=== PATIENT | male | born 1995 | race Caucasian/White ===

== ENCOUNTER 2025-01-19 20:16 | Emergency (ER) | payer SELFPAY ==
--- NOTE | ~2025-01-19 | XR_ITS ---
CLINICAL HISTORY: SOB 1 view chest x-ray Comparison: None provided Findings: The lungs are clear. Heart size is normal. No acute fracture. IMPRESSION: 1. No acute findings. This document has been electronically signed by: Collins Felipe MD on 01/19/2025 21:59:42
--- NOTE | 2025-01-19 20:19 | ECG_ITS ---
Test Reason : SOB Blood Pressure : */* mmHG Vent. Rate : 90 BPM Atrial Rate : 90 BPM P-R Int : 138 ms QRS Dur : 94 ms QT Int : 364 ms P-R-T Axes : 48 86 46 degrees QTcB Int : 445 ms Normal sinus rhythm Normal ECG No previous ECGs available Referred By: Pat Tinoco Electronically Signed By: Moses Martin
[2025-01-19 20:22] VITALS: PULSE 114; RESP 30; O2SAT 100; BMI 25.1
[2025-01-19] MEDS: diazePAM 10 MG/2 ML CARTRIDGE 5 MG IVPUSH (20:28)
--- NOTE | 2025-01-19 20:42 | ED_ITS ---
HPI - General Adult General Chief complaint: Anxiety Stated complaint: sob Time Seen by Provider: 01/19/25 20:33 Source: patient Mode of arrival: ambulatory Limitations: no limitations History of Present Illness ED Provider: Axel REDDY HPI narrative: The patient is a 29-year-old male presenting to the ED for evaluation of severe shortness of breath with hyperventilation. Patient's significant other reports patient was sitting in the car when he began experiencing sudden onset shortness of breath and severe anxiety. The patient admits to smoking marijuana earlier today, denies any other substance use. The patient denies any history of respiratory pathology. Upon initial evaluation the patient is highly anxious, tearful, stating 6 months ago and urgent care center advised him he had a ?stain on his lungs. The patient currently reports associated chest pain with deep respiration, denies associated nausea, vomiting, abdominal pain, back pain, denies recent fever/chills, sick contacts, or trauma. Related Data Allergies Allergy/AdvReac Type Severity Reaction Status Date / Time No Known Allergies (No Known Allergy Verified 01/19/25 20:25 Allergies*) Review of Systems 2 Review of Systems: Yes all other systems are reviewed and are negative PMFSH Social History Social History Unable to assess alcohol history related to: Unknown Smoked in Last 30 Days: Yes Use of substances other than those prescribed or required for medical reasons: Yes Substance Use Type: Marijuana Substance Use Frequency: Occasionally Last Used Substance: Hours (ago) Any prior treatment program specific to substance use: No Advance Directives: No Advance Directives Information Provided: No Do you have a plan to hurt others: No Plan Physical Exam ED Vital Signs: Vital Signs - 24 hr 01/19/25 20:22 01/19/25 21:39 Temperature 97.9 F Pulse Rate 114 H 71 Respiratory Rate 30 H 16 Blood Pressure 103/56 L Pulse Oximetry 100 98 Oxygen Delivery Method Room Air Room Air BMI result Body Mass Index 25.1 CONSTITUTIONAL: The patient appears highly anxious, tearful, otherwise non- toxic, well nourished and in no acute distress. Vital signs as documented, no hypoxia. HEAD: Atraumatic, normocephalic. EYES: EOMs grossly intact, pupils equal, conjunctiva clear, no exudate. ENT: Nares patent, no discharge. Airway patent, no audible stridor, visible mucosa is pink and moist without noted lesions. NECK: Trachea is midline, no obvious masses or gross abnormalities. CHEST: Symmetric movement, normal appearance. LUNGS: LS present and CTAB, no w/r/r. Non-labored work of breathing. CARDIAC: Regular Rhythm, S1/S2 appreciated, no murmurs, rubs or gallops. ABDOMEN: Abdomen soft and non-tender x4 quadrants, no palpable masses or organomegaly. : Deferred. EXTREMITIES: Normal tone, moves all extremities spontaneously without reported pain. No obvious acute injury or deformity noted. NEURO: Alert and oriented x3, CN II-XII appear grossly intact. Diffuse tremors noted, cerebellar functioning otherwise grossly intact. No obvious sensory or motor deficits. Speech clear and appropriate. PSYCH: Highly anxious affect, otherwise with appropriate eye contact, fluid speech, with appropriate response to questioning. No reported suicidality or homicidality. Patient does not appear to be responding to internal stimuli. SKIN: Warm, dry, color appropriate, normal turgor. No rashes noted. Medications Administered Discontinued Medications Generic Name Dose Route Start Last Admin Trade Name Tacosq PRN Reason Stop Dose Admin Diazepam 5 mg 01/19/25 20:19 01/19/25 20:28 Diazepam 10 Mg/2 Ml Cartridge IVPUSH 01/19/25 20:20 5 mg STAT STA Administration Medical Decision Making Medical Decision Making MDM Narrative: 8:46 PM 01/19/2025 (Nelson REDDY): The patient is a 29-year-old male presenting to the ED for evaluation of sudden onset shortness of breath with severe anxiety. The patient appears to be suffering from hyperventilation syndrome, patient was able to be calmed with excessive coaching, we will also give Valium to assist with anxiolysis. The patient's exam is otherwise markedly reassuring, no hypoxia. No adventitious lung sounds. The patient's EKG is nonischemic. We will obtain basic laboratory workup, troponin, and chest x-ray. 9:08 PM 01/19/2025 (Nelson REDDY): Patient's laboratory evaluation is beginning to result, no leukocytosis, significant anemia, electrolyte abnormality, or LANIE. The patient's LFTs are normal. Troponin is negative. Viral swab is pending. Patient is refusing to leave his girlfriend in the exam room to go for a two- view chest x-ray. Chest x-ray changed to one view portable. The patient's viral swab is negative. Patient's heart rate has improved, patient appears less anxious following intervention, tremors have resolved.. We will continue to monitor while awaiting chest x-ray results. 10:46 PM 01/19/2025 (Nelson REDDY): Patient's x-ray results have resulted, no acute findings. Patient's heart rate has improved with calming, patient is currently PERC negative, no indication for advanced imaging. Patient will be reassessed with expectation of discharge. Admission/Observation Consideration of admission/observation: Escalation of care including admission/observation considered Lab Data MDM Lab Attestation statement: I reviewed the patient's lab results. 01/19/25 20:38 01/19/25 20:38 Labs: Lab Results 01/19/25 01/19/25 Range/Units 20:38 20:58 WBC 4.7 L (4.8-10.8) X10*3/uL RBC 4.34 L (4.60-5.80) X10*6/uL Hgb 13.0 L (14.0-18.0) g/dl Hct 37.2 L (42.0-52.0) % MCV 85.7 (80.0-98.0) fL MCH 30.0 (27.0-33.0) pg MCHC 34.9 (31.0-36.0) g/dl RDW 11.6 (11.0-16.0) % Plt Count 183 (160-400) X10*3/uL MPV 9.9 (9.4-12.4) fL Immature Gran % (Auto) 0.2 (0.0-0.4) % Neut % (Auto) 45.3 (45-73) % Lymph % (Auto) 41.8 H (20-40) % Sharp % (Auto) 8.9 (2-11) % Eos % (Auto) 3.2 (0-4) % Baso % (Auto) 0.6 (0-2) % Lymph # (Auto) 2.0 (1.2-4.9) X10*3/uL Sharp # (Auto) 0.4 (0.1-1.2) X10*3/uL Eos # (Auto) 0.2 (0.0-0.4) X10*3/uL Baso # (Auto) 0.0 (0.0-0.2) X10*3/uL Abs Immat Gran (auto) 0.01 (0.00-0.03) X10*3/uL Absolute Neuts (auto) 2.1 (2.0-8.3) x10*3/uL Absolute Nucleated RBC 0.000 (0.0-0.012) X10*3/uL Nucleated RBC % (auto) 0.0 (0.0-0.2) /100WBC Sodium 142 (135-145) mmol/L Potassium 3.5 (3.3-5.1) mmol/L Chloride 106 (96-108) mmol/L Carbon Dioxide 22 (22-29) mmol/L Anion Gap 18 (12-20) BUN 18 H (9-16) mg/dL Creatinine 1.14 (0.5-1.4) mg/dL Estim Creat Clear Calc 89.3 Estimated GFR > 60 Random Glucose 121 H (60-115) mg/dL Calcium 9.1 (8.4-10.2) mg/dL Total Bilirubin 0.5 (0.0-1.0) mg/dL Direct Bilirubin 0.2 (0.0-0.5) mg/dL AST 56 H (5-37) U/L ALT 25 (0-40) U/L Alkaline Phosphatase 44 (39-117) U/L Troponin I High Sens < 2.7 (<3.5-35.0) ng/L Total Protein 7.0 (6.5-8.0) g/dL Albumin 4.6 (3.5-5.0) g/dL Influenza Type A (PCR) NEGATIVE (Negative) Influenza Type B (PCR) NEGATIVE (Negative) RSV RNA Qual (PCR) NEGATIVE (Negative) SARS-CoV-2 RNA (RT-PCR) NEGATIVE (Negative) Independent Interpretation I performed an independent interpretation of an: EKG (EKG shows sinus rhythm with a rate of 90, no evidence of acute ischemia, no ST elevation, no ectopy. QTC 445, no previous for comparison.) Radiology Impression Discussion of test interpretation with radiology: I have reviewed the radiologist's reading. Independent Historian CLINICAL HISTORY: SOB 1 view chest x-ray Comparison: None provided Findings: The lungs are clear. Heart size is normal. No acute fracture. IMPRESSION: 1. No acute findings. This document has been electronically signed by: Collins Felipe MD on 01/19/2025 21:59:42 Discharge Plan Discharge Clinical Impression: Hyperventilation, Acute anxiety Patient Disposition: Home, Self-Care Instructions: Hyperventilation (ED), Anxiety (ED) Additional Instructions: Thank you for choosing [facility]'s Emergency Department for your care today. Thankfully your laboratory evaluation, exam, and x-ray today are all reassuring. There was no evidence of an acute cardiac, pulmonary, infectious, metabolic, or coagulopathic (blood clot), cause for your symptoms. At this time there is no indication for admission to the hospital or continued ED observation, and it is safe to discharge you home. Your symptoms today were consistent with hyperventilation syndrome likely secondary to severe anxiety. Please stay well hydrated and get plenty of rest. Please follow up with your primary care physician for re-evaluation, consideration of anxiolytic medication, referral to a therapist as indicated, additional management of your symptoms, and continued preventative care. If you do not have a primary care physician, please call the [facility] at [phone] to establish a new primary care physician. While waiting to establish your new primary care physician, you can call our [facility] at [phone] for non-emergency needs. Please return to the emergency department if you develop a severe or sudden change in your symptoms, a fever over 100.4 that does not improve with Tylenol or Ibuprofen, recurrent vomiting, or any other new or worsening symptoms or concerns. Print Language: Japanese
[2025-01-19 20:44] LABS: MANUAL DIFF FLAG NO
[2025-01-19 20:45] LABS: Hematocrit 37.2 % (42.0-52.0); Hemoglobin 13.0 g/dl (14.0-18.0); Imm Gran Abs Auto 0.01 X10*3/uL (0.00-0.03); Imm Gran Pct Auto 0.2 % (0.0-0.4); Lymphocytes Absolute Auto 2.0 X10*3/uL (1.2-4.9); Mean Corpuscular HGB Conc 34.9 g/dl (31.0-36.0); Mean Corpuscular Hemoglobin 30.0 pg (27.0-33.0); Mean Corpuscular Volume 85.7 fL (80.0-98.0); NRBC Abs Auto 0.000 X10*3/uL (0.0-0.012); NRBC Pct Auto 0.0 /100WBC (0.0-0.2); Platelet Count 183 X10*3/uL (160-400); Red Blood Count 4.34 X10*6/uL (4.60-5.80); White Blood Count 4.7 X10*3/uL (4.8-10.8)
[2025-01-19 20:59] LABS: Alanine Aminotransferase 25 U/L (0-40); Albumin Level 4.6 g/dL (3.5-5.0); Alkaline Phosphatase 44 U/L (39-117); Anion Gap 18 (12-20); Aspartate Amino Transferase 56 U/L (5-37); Blood Urea Nitrogen 18 mg/dL (9-16); Calcium 9.1 mg/dL (8.4-10.2); Carbon Dioxide 22 mmol/L (22-29); Chloride 106 mmol/L (96-108); Creatinine Clr Calc Pharmacy 89.3; Estimated Glomerular Filt Rate > 60; Potassium 3.5 mmol/L (3.3-5.1); Sodium 142 mmol/L (135-145); Total Protein 7.0 g/dL (6.5-8.0)
[2025-01-19 21:07] LABS: Troponin-I High Sensitivity < 2.7 ng/L (<3.5-35.0)
[2025-01-19 21:39] VITALS: BP 103/56; PULSE 71; RESP 16; TEMP 36.6; O2SAT 98
[2025-01-19 21:40] LABS: Resp Syncy Virus RNA Qual PCR NEGATIVE (Negative); SARS COV2 PCR INHOUSE NEGATIVE (Negative)
[2025-01-19 23:23] VITALS: BP 110/68; PULSE 71; RESP 16; TEMP 36.6; O2SAT 98
== END 2025-01-19 23:26 | disposition home or self-care (01) ==
PROVIDERS: Physician Assistant; Physician Assistant Medical; Emergency Provider Emergency Medicine
DX: R06.4 Hyperventilation (principal); F41.9 Anxiety disorder, unspecified; R06.02 Shortness of breath; Z03.818 Encounter for observation for suspected exposure to other biological agents ruled out
CPT/HCPCS: 36415; 71045; 80048; 80076; 84484; 85025; 87637; 93005; 96374; 99284; 99285; J3360

== ENCOUNTER → 2025-01-19 20:19 | Outpatient (BNV) | payer SELFPAY | PROVIDERS: Emergency Provider Emergency Medicine; Visit Provider Internal Medicine Cardiovascular Disease | DX: R06.02 Shortness of breath (principal) | CPT/HCPCS: 93010 ==

== ENCOUNTER → 2025-01-19 21:07 | Outpatient (BNV) | payer SELFPAY | PROVIDERS: Emergency Provider Emergency Medicine; Visit Provider Student in an Organized Health Care Education/Training Program | DX: R06.02 Shortness of breath (principal) | CPT/HCPCS: 71045 ==